=== PATIENT | female | born 1980 | race Caucasian/White ===

== ENCOUNTER 2017-01-17 02:35 | Emergency (ER) | payer MEDICAID ==
[~2017-01-17] VITALS: Ht 162.6 cm; Wt 128.7 kg
[~2017-01-17 02:35] MED LIST: HYDR-3240 PO; METF500T4 PO
[2017-01-17] MEDS ORDERED: DOCUSATE 50 MG/5 ML ORAL SOL ONE (03:29)
[2017-01-17] MEDS ORDERED: FURO40TA6 PO (03:43)
[2017-01-17] MEDS ORDERED: DOCUSATE 50 MG/5 ML ORAL SOL OT PRN (04:00)
[2017-01-17 04:43] VITALS: BP 121/74
== END 2017-01-17 04:44 | disposition home or self-care (01) ==
LOC: ED 03:33
DX: H61.22 Impacted cerumen, left ear (principal)
CPT/HCPCS: 69209; 99282

== ENCOUNTER 2020-01-15 20:17 | Emergency (ER) | payer SELFPAY ==
[~2020-01-15] VITALS: Ht 162.6 cm; Wt 115.0 kg
[~2020-01-15 20:17] MED LIST changes: +FURO40TA6 PO; +METF500T17 PO; -METF500T4 PO
[2020-01-15 23:07] VITALS: BP 127/74
== END 2020-01-15 23:19 | disposition home or self-care (01) ==
LOC: ED 22:30
DX: S16.1XXA Strain of muscle, fascia and tendon at neck level, initial encounter (principal); S39.012A Strain of muscle, fascia and tendon of lower back, initial encounter; V49.09XA Driver injured in collision with other motor vehicles in nontraffic accident, initial encounter; Y93.89 Activity, other specified; Y92.410 Unspecified street and highway as the place of occurrence of the external cause; Y99.8 Other external cause status
CPT/HCPCS: 72110; 72125; 99284